=== PATIENT | female | born 1950 | race African-American/Black ===

== ENCOUNTER 2020-08-18 15:21 | Emergency (ER) | payer OTHER ==
[~2020-08-18] VITALS: Ht 165.1 cm; Wt 73.0 kg
[2020-08-18 16:46] LABS: BASOPHILS % 0.5 % (0.0-2.0); EOSINOPHILS % 1.1 % (0.0-5.0); HEMATOCRIT. 30.3 % (36.0-48.0); HEMOGLOBIN. 9.6 g/dL (12.0-16.0); LYMPHOCYTES % 10.5 % (20.0-50.0); MEAN CORPUSCULAR HEMOGLOBIN 26.6 pg (28.0-32.0); MEAN CORPUSCULAR VOLUME 83.7 fL (81.0-99.0); MONOCYTES % 14.3 % (2.0-8.0); NEUTROPHILS % 73.6 % (40.0-76.0); RED BLOOD CELL COUNT 3.62 mill/uL (4.2-5.4); RED CELL DISTRIBUTION WIDTH 20.2 % (11.6-14.6)
[2020-08-18 16:51] LABS: CHLORIDE 104 mEq/L (98-107)
[2020-08-18 17:33] LABS: PLATELET ESTIMATE DECREASED
[2020-08-18 17:34] LABS: MEAN PLATELET VOLUME 11.2 fl (7.4-10.4); PLATELET 73 x1000/uL (130-400)
[2020-08-18] MEDS ORDERED: LEVOFLOXACIN 750MG PREMIX 150 ML IV ONE (18:30)
[2020-08-18 20:00] VITALS: BP 124/65
== END 2020-08-18 20:31 | disposition short-term general hospital (02) ==
LOC: ER 15:21 → CANBEDREQ 23:08
DX: I50.9 Heart failure, unspecified (principal); J18.9 Pneumonia, unspecified organism; R06.03 Acute respiratory distress; N18.6 End stage renal disease; Z99.2 Dependence on renal dialysis; J44.9 Chronic obstructive pulmonary disease, unspecified
CPT/HCPCS: 36415; 71045; 80053; 83880; 84484; 85025; 93005; 96365; 99285; J1956